=== PATIENT | female | born 1990 | race Two or more races ===

== ENCOUNTER 2024-12-31 10:16 | Observation (INO) | payer MEDICAID, SELFPAY ==
[2024-12-31] VITALS (10 sets, daily range): BP systolic 135–142; BP diastolic 82–88; PULSE 78–110; RESP 16–27; TEMP 36.9–37; O2SAT 89–97; BMI 58.4
--- NOTE | 2024-12-31 10:48 | EDRME_ITS ---
<Statement entered by Joseph Sawyer MD - 12/31/24 21:12> I didn't see the patient. This was sent to me in error. Rapid Medical Screening Exam RME Arrival date/time: 12/31/24 10:16 34-year-old female with no known medical history presents to the emergency room with a chief complaint of shortness of breath. Patient was sent over by her primary care provider for an O2 saturation of 88% on room air. The patient has been on antibiotics for pneumonia for a week and her symptoms have progressively gotten worse. I have greeted and performed a focused initial assessment of this patient. A comprehensive ED assessment and evaluation of the patient, analysis of all test results, and completion of the medical decision making process will be conducted by additional ED providers. Chief Complaint: Flu Like Symptoms Vital signs: Vital Signs Temperature 98.4 F 12/31/24 10:44 Pulse Rate 91 12/31/24 10:44 Respiratory Rate 16 12/31/24 10:44 Blood Pressure 135/88 H 12/31/24 10:44 Pulse Oximetry (%) 89 L 12/31/24 10:44 Oxygen Delivery Method Room Air 12/31/24 10:44 Vital signs reviewed by provider: Yes
--- NOTE | 2024-12-31 10:48 | XR_ITS ---
Examination: PA lateral chest 2 views Technique: Upright PA lateral chest 2 views Exam date and time: December 31, 2024 1058 hrs. Indications: Coughing fever beginning 2 weeks ago Findings: The film is overpenetrated There is early pneumonia left base obscuring detail left hemidiaphragm Right lung clear Impression: Early left base pneumonia
[2024-12-31] MEDS: DEXAMETHASONE SOD PHOS INJ 10 MG/ML VIAL PO (11:15)
[2024-12-31] MEDS: ALBUTEROL/IPRATROPIUM (Duoneb) RT SOL 3 ML NEBU 6 ML INH (11:23)
--- NOTE | 2024-12-31 11:25 | EDNOTE_ITS ---
ED SOB =RME/HPI General Chief Complaint: Flu Like Symptoms Stated Complaint: SENT BY PCP FOR LOW SP02 Time Seen by Provider: 12/31/24 11:19 Arrival date/time: 12/31/24 10:16 RME / HPI RME / HPI Narrative: 12/31/24 10:16 34-year-old female with no known medical history presents to the emergency room with a chief complaint of shortness of breath. Patient was sent over by her primary care provider for an O2 saturation of 88% on room air. The patient has been on antibiotics for pneumonia for a week and her symptoms have progressively gotten worse. I have greeted and performed a focused initial assessment of this patient. A comprehensive ED assessment and evaluation of the patient, analysis of all test results, and completion of the medical decision making process will be conducted by additional ED providers. DR. EVAN MORRIS ED EVALUATION 34 year old female presents to the ED for evaluation of shortness of breath and cough today. Reportedly 2 weeks ago had a mild cough and diagnosed with strep throat by PCP at [facility]. States she was started on Amoxicillin and Promethazine which she completed with no change. States 5 days ago the cough worsened and returned to her PCP who diagnosed her with pneumonia. Was started on an inhaler and a 5-day course of Z-pack which she completed today with no improvement. Accompanied by pain just below her left breast. Denies fevers in the last 24 hours. Related Data Home Medications ?Medication ?Instructions ?Recorded ?Confirmed ergocalciferol (vitamin D2) 1,250 1,250 mcg PO QDAY 08/14/21 mcg (50,000 unit) capsule ferrous sulfate 325 mg (65 mg 325 mg PO QDAY 08/14/21 08/14/21 iron) tablet,delayed release Allergies Allergy/AdvReac Type Severity Reaction Status Date / Time No Known Allergies Allergy Verified 08/14/21 17:44 Review of Systems Review of Systems Narrative Review of Systems: GEN: No fever, no chills, no weight loss EYES: No discharge, no visual changes, no pain HEENT: No ear pain, no congestion, no sore throat PULM: + shortness of breath, +cough CV: No chest pain, no dyspnea on exertion, no palpitations GI: No nausea, no vomiting, no diarrhea, no pain, no constipation : No frequency, no urgency and no dysuria MUSC/SKEL No joint pain, no back pain SKIN: No rash NEURO: No weakness, no headache Past Medical History Past Medical History GENITOURINARY: Positive Genitourinary Disorders (HX OF UTI 2 WEEKS AGO.) REPRODUCTIVE: Positive Previous Pregnancies OTHER HISTORY: Positive Hospitalization, Anesthesia Reactions (2007- passed out and had no pulse afater general anesthesia.) and Chicken Pox Family History FAMILY HISTORY: Positive Family Surgery (.) Surgical History SURGICAL: Positive Section Social History SMOKING STATUS: Never smoker SECOND HAND EXPOSURE: No SUBSTANCE USE: does not use ED Exam Narrative Physical exam: GENERAL APPEARANCE: Well hydrated, well nourished, in no acute distress. Obese. VITALS: All vitals were reviewed and the pulse ox is 89% on room air which is low. HEENT: Normocephalic, atramatic, EOMI, EACs are patent. There is no bulge or retraction. Throat without erythema or exudate. Moist oromucosa. No jaundice NECK: Supple, no JVD or bruits. CARDIOVASCULAR: Heart regular without S3-S4 or murmur. No rubs or gallops. LUNGS/CHEST: Rhonchi left base. No rales or wheezing. ABDOMEN: Soft, obese, nontender, with normal bowel sounds. No pulsatile masses. No rebound, rigidity, or guarding. No incarcerated hernia. EXTREMITIES: Normal inspection and palpation. No edema, clubbing, or cyanosis. Intact CSM SKIN: Warm and dry without rashes. Normal inspection. MUSCULOSKELETAL: Normal inspection. No gross deformity, full ROM all extremities NEURO: Alert and oriented x3. Cranial nerves II through XII grossly intact. There are no other motor or sensory deficits noted. PSYCHIATRIC: Normal mood and affect. No psychosis. Course Course Course Narrative: chest xray ordered to help determine etiology of shortness of breath. Quality Measures none Orders Category Date Time Status Patient Condition Routine Admission 12/31/24 17:[address] in Observation Status Routine Admission 12/31/24 17:33 Active Activity as Tolerated Routine Care 12/31/24 17:36 Ordered Bedside COVID-19 Antigen Test NOW Care 12/31/24 10:48 Active Bedside Influenza A&B Antigen Test NOW Care 12/31/24 10:48 Completed Continuous Pulse Oximetry NOW Care 12/31/24 17:33 Active Incentive Spirometry Treatment NOW Care 12/31/24 17:33 Active Notify provider NEEDED Care 12/31/24 17:33 Active Saline [Insert IV] NOW Care 12/31/24 11:35 Active Vital Signs, Non-Routine Q4H Care 12/31/24 17:45 Ordered Vital Signs, Non-Routine Q4H Care 12/31/24 21:45 Ordered Diet Regular Diet 12/31/24 Dinner Active XR chest 2V Stat Exams 12/31/24 10:48 Completed CBC AM DRAW Lab 01/01/25 05:00 Ordered CBC Stat Lab 12/31/24 11:46 Completed CMP [Comprehensive Metabolic Panel] Stat Lab 12/31/24 11:46 Completed Comprehensive Metabolic Panel AM DRAW Lab 01/01/25 05:00 Ordered Comprehensive Metabolic Panel AM DRAW Lab 01/02/25 05:00 Ordered Comprehensive Metabolic Panel AM DRAW Lab 01/03/25 05:00 Ordered Acetaminophen Tab [Tylenol Tab] Med 12/31/24 17:33 Active 650 mg PO Q6H PRN Albuterol/Ipratr Rt Sabiha [Duoneb Rt Sabiha] Med 12/31/24 19:00 Ordered 3 ml INH Q4HRRT Albuterol/Ipratr Rt Sabiha [Duoneb Rt Sabiha] Med 12/31/24 10:48 Discontinued 6 ml INH X1 ONE Azithromycin Po [Zithromax PO] Med 01/01/25 17:30 Once 250 mg PO X1 ONE Azithromycin Po [Zithromax PO] Med 12/31/24 17:28 Discontinued 500 mg PO X1 ONE Dexamethasone Inj [Decadron Inj] Med 12/31/24 10:48 Discontinued 10 mg PO X1 ONE Enoxaparin [Lovenox] Med 01/01/25 09:00 Ordered 40 mg SC QDAY Ibuprofen Tab [Motrin Tab] Med 12/31/24 17:33 Active 600 mg PO Q6H PRN Ondansetron Inj [Zofran Inj] Med 12/31/24 17:33 Ordered 4 mg IV Q6H PRN Senna [Senokot] Med 12/31/24 17:33 Ordered 2 tab PO BID PRN cefTRIAXone [Rocephin] 1,000 mg Med 01/01/25 14:00 Active Sodium Chloride 0.9% (P) [Ns 0.9% (P)] 50 ml IV QDAY@1400 cefTRIAXone [Rocephin] 1,000 mg Med 01/01/25 14:00 Discontinued Sodium Chloride 0.9% (P) [Ns 0.9% (P)] 50 ml IV QDAY@1400 cefTRIAXone [Rocephin] 1,000 mg Med 12/31/24 12:45 Discontinued Sodium Chloride 0.9% (P) [Ns 0.9% (P)] 50 ml IV X1 oxyCODONE/APAP 5/325 [Percocet 5/325] Med 12/31/24 17:33 Active 1 tab PO Q6H PRN Code Status Routine Oth 12/31/24 17:33 Ordered Oxygen Delivery DAILY RT 12/31/24 17:36 Active Vital Signs Vital signs: Vital Signs Temperature 98.4 F 12/31/24 10:44 Pulse Rate 91 12/31/24 10:44 Respiratory Rate 16 12/31/24 10:44 Blood Pressure 135/88 H 12/31/24 10:44 Pulse Oximetry (%) 89 L 12/31/24 10:44 Oxygen Delivery Method Room Air 12/31/24 10:44 Shortness of Breath / Dyspnea MDM Narrative MDM Narrative:: María Mendoza am scribing for and in the presence of Dr. Carl. The patient has failed amoxicillin and has failed Zithromax by mouth as an outpatient for pneumonia. She came in with O2 saturation of 89% room air. CBC unremarkable. CMP negative. COVID-19 and influenza are negative. We did not do a test because she reported that she has had no sex for the last 3 years Chest x-ray interpreted by me: Left lower lobe infiltrate. Heart normal. Mediastinum normal. Normal bones. In the emergency department the patient received albuterol in the form of DuoNeb, Decadron and IV antibiotic Rocephin. The latest O2 saturation in room air was 87% at 4:50 PM. 4:53 PM, I spoke to discussed with Dr. Jeremy Moreno, resident on-call for Dr. Givens, hospitalist on-call. She agreed to assess the patient for admission. Critical care time is approximately 35 minutes excluding any procedure. Patient data External records reviewed:: [facility] previous records (I reviewed ED visit on 08/10/2021) Clinical information provided by:: patient Social determinants that could affect healthcare access:: none Patient has the following chronic illnesses:: Previous pregnancies How is presenting disease/condition affected by chronic disease/condition?: uneffected by Evaluation data The following diagnostics were reviewed and interpreted by me:: lab results and radiology exam(s) Lab and/or radiology exams considered but not ordered:: None Interpretation Summary: Ordering Physician: Chris Garcia Date of Service: 12/31/24 Procedure(s): XR chest 2V Accession Number(s): [id number] cc: Chris Garcia; Butch Alfonso MD~ Examination: PA lateral chest 2 views Technique: Upright PA lateral chest 2 views Exam date and time: December 31, 2024 1058 hrs. Indications: Coughing fever beginning 2 weeks ago Findings: The film is overpenetrated There is early pneumonia left base obscuring detail left hemidiaphragm Right lung clear Impression: Early left base pneumonia Dictated By: Butch Alfonso MD Signed By: <Electronically signed by Butch Alfonso MD in OV> 12/31/24 1257 Medications / Prescriptions Medications or Prescriptions considered but not ordered:: None Medication administrations:: Medication Administration History Acetaminophen (Acetaminophen 325 Mg Tablet) 650 mg PO Q6H PRN PRN Reason: Fever >101.5 Stop: 01/30/25 17:32 Albuterol/Ipratropium (Albuterol/Ipratropium (Duoneb) Rt Sabiha 3 Ml Nebu) 3 ml INH Q4HRRT [facility] Stop: 01/30/25 18:59 Azithromycin (Azithromycin 250 Mg Tablet) 250 mg PO X1 ONE Stop: 01/01/25 17:31 Enoxaparin Sodium (Enoxaparin Sod Inj 40 Mg/0.4 Ml Syringe) 40 mg SC QDAY [facility] Stop: 01/15/25 08:59 Ceftriaxone Sodium 1,000 mg/ (Sodium Chloride) 50 mls @ 100 mls/hr IV QDAY@1400 [facility] Stop: 01/08/25 13:59 Ibuprofen (Ibuprofen Tab 600 Mg Tablet) 600 mg PO Q6H PRN PRN Reason: PAIN SCALE 1-3 (mild Stop: 01/30/25 17:32 Ondansetron HCl (Ondansetron Inj 2 Mg/Ml Inj 2 Ml) 4 mg IV Q6H PRN; Protocol PRN Reason: NAUSEA OR VOMITING Stop: 01/30/25 17:32 Oxycodone/Acetaminophen (Oxycodone/Apap 5/325 Tablet) 1 tab PO Q6H PRN PRN Reason: PAIN SCALE 4-6 (Moderate Stop: 01/05/25 17:32 Sennosides (Senna Tablet) 2 tab PO BID PRN; Protocol PRN Reason: CONSTIPATION Stop: 01/30/25 17:32 Discontinued Medications Albuterol/Ipratropium (Albuterol/Ipratropium (Duoneb) Rt Sabiha 3 Ml Nebu) 6 ml INH X1 ONE Stop: 12/31/24 10:49 Last Admin: 12/31/24 11:23 Dose: 6 ml Documented By: LO Azithromycin (Azithromycin 250 Mg Tablet) 500 mg PO X1 ONE Stop: 12/31/24 17:29 Dexamethasone Sodium Phosphate (Dexamethasone Sod Phos Inj 10 Mg/Ml Vial) 10 mg PO X1 ONE Stop: 12/31/24 10:49 Last Admin: 12/31/24 11:15 Dose: 10 mg Documented By: DB Ceftriaxone Sodium 1,000 mg/ (Sodium Chloride) 50 mls @ 100 mls/hr IV X1 ONE Stop: 12/31/24 13:14 Last Infusion: 12/31/24 13:10 Dose: Infused Documented By: Admin: 12/31/24 12:41 Dose: 100 mls/hr Documented By: ER Ceftriaxone Sodium 1,000 mg/ (Sodium Chloride) 50 mls @ 100 mls/hr IV QDAY@1400 [facility] Stop: 01/08/25 13:59 See above Consultations Consultation(s) initiated? (list below): Yes Consultation #1 (Physician, Specialty, Details): I spoke with hospitalist team regarding admission. Discussed patients PMHx, HPI, ED course, exam findings, labs, and radiology results as noted above. Diagnosis Shortness of Breath Differential Diagnosis: acute exacerbation of chronic obstructive airways disease, congestive heart failure, community acquired pneumonia and asthma with exacerbation Most likely diagnosis given after review of the tests above:: Pneumonia Failure of outpatient antibiotic Hypoxia Admission Indicated Admission indicated?: not indicated Admission Request Was there a request for admission?: Yes Admission Attestation Admission request attestation: Discussed case with [] from Hospitalist service regarding admission. Discussed patients ED course, exam findings, labs, and radiology results. The Hospitalist [agrees,declines] to accept the patient for admission. Disposition Plan Disposition Plan: Admit Discharge Plan Plan Patient Disposition: Admit Acute Care w/in Hospital Disposition Comment: Stable for admit Prescriptions/Referrals Prescriptions/Med Rec: No Action ergocalciferol (vitamin D2) 1,250 mcg (50,000 unit) capsule 1,250 mcg PO QDAY Patient Comments: TAKE 1 CAPSULE BY MOUTH ONE TIME PER WEEK ferrous sulfate 325 mg (65 mg iron) tablet,delayed release (DR/EC) 325 mg PO QDAY Patient Comments: TAKE 1 TABLET BY MOUTH EVERY DAY Referrals: Zechariah Landry MD [Primary Care Provider] - In 1 week Problem List Clinical Impression: Pneumonia, Hypoxia Patient/Caregiver Discharge Instructions Print Language: Kyrgyz Stand Alone Forms: [facility] Award Info., Patient Portal Info Letter
[2024-12-31 11:54] LABS: Basophils # (Auto) 0.1 Thou/mm3 (0.0-0.2); Basophils % (Auto) 1 % (0-2.5); Eosinophils # (Auto) 0.3 Thou/mm3 (0.0-0.5); Eosinophils % (Auto) 3 % (0-10); Hematocrit 36.7 % (36.0-46.0); Hemoglobin 11.9 g/dL (12.0-16.0); Immature Granulocytes % (Auto) 1 % (0-0); Immature Granulocytes Auto 0.07 Thou/mm3 (0.00-0.00); Lymphocytes # (Auto) 3.1 Thou/mm3 (1.0-4.8); Lymphocytes % (Auto) 29 % (10-50); Mean Corpuscular HGB Conc 32.4 g/dl (31.0-37.0); Mean Corpuscular Volume 83 fL (80-100); Monocytes # (Auto) 0.6 Thou/mm3 (0.0-0.8); Monocytes % (Auto) 5 % (0-12); Neutrophils # (Auto) 6.8 Thou/mm3 (1.8-7.7); Neutrophils % (Auto) 62 % (37-80); Nucleated Red Blood Cell % 0 /100 WBC (0); Platelet Count 372 Thou/mm3 (140-440); RDW Standard Deviation 44.2 fL (36.4-46.3); Red Blood Count 4.41 Miln/mm3 (4.00-5.20); White Blood Count 10.9 Thou/mm3 (3.6-11.0)
[2024-12-31 12:23] LABS: Alanine Aminotransferase 49 U/L (10-49); Albumin, Serum 4.6 gm/dL (3.5-5.0); Albumin/Globulin Ratio 1.4 (1.2-2.2); Alkaline Phosphatase 90 U/L (46-116); Anion Gap 10 (7-16); Aspartate Amino Transferase 53 U/L (0-34); BUN/Creatinine Ratio 15 Ratio (12-20); Bilirubin,Total 0.7 mg/dL (0.3-1.2); Blood Urea Nitrogen 9 mg/dL (9-23); Calcium 9.7 mg/dL (8.3-10.6); Calcium (Corrected) 9.7 mg/dL (8.5-10.1); Carbon Dioxide 27.7 mMol/L (20.0-31.0); Chloride 101 mMol/L (98-107); Creatinine (Component) 0.6 mg/dL (0.6-1.3); Estimated Creatinine Clearance 188.7 mL/min (>60); Globulin 3.3 gm/dL (2.3-3.5); Glucose 116 mg/dL (74-106); Osmolality,Calculated 277 (275-295); Sodium 139 mMol/L (136-145); Total Protein 7.9 gm/dL (5.7-8.2); eGFR > 60 See Note
[2024-12-31] MEDS: cefTRIAXone 1,000 MG in SODIUM CHLORIDE 0.9% (P) 50 ML 100 MG IV (12:41)
--- NOTE | 2024-12-31 17:40 | ESHP_ITS ---
<Statement entered by Indira Zambrano MD - 12/31/24 18:22> I discussed with and supervised my co-resident involved in the care of this patient. I agree with the assessment and plan as documented above. Patient is a 34year old female with no significant PMH who presents to the ER for worsening shortness of breath. Patient had strep throat and completed an outpatient course of azithromycin and amoxicillin, but continues to feel short of breath. In the ER, patient was saturating at 89% on room air. CXR showed early left base pneumonia. She was given steroids and breathing treatment in the ER. While talking she is not short of breath and can complete full sentences but desaturates to the 90s. Patient to be admitted overnight for IV antibiotics and oxygen if needed. Indira Zambrano MD PGY-3 Documentation for date of: 12/31/24 HPI History of Present Illness Chief complaint: Shortness of breath History of present illness: Patient is a 34-year-old female with no significant past medical history presenting with a complaint of shortness of breath over the last 2 weeks. Symptoms started on 12/20 with fevers, chills, sore throat. Patient went to primary care at that time and was diagnosed with strep throat and prescribed a course of amoxicillin. She completed the entire course however did not feel better and began to develop shortness of breath. She went back to her primary care was prescribed azithromycin and finished the last day of antibiotics today. However noted that she still continued to feel bad and her shortness of breath had not improved so she went to the ED. In the ED patient was found to be hypoxic with an oxygen saturation of 88% on room air. CBC with a hemoglobin of 11.9. CMP with AST of 53. Chest x-ray shows early left base pneumonia. Patient was given a dose of ceftriaxone, DuoNeb and 10 mg of dexamethasone. Medical history: Obesity Allergies: None Medications: Ibuprofen Surgical history: 2 C-sections Social: Denies alcohol or drug use CODE STATUS: Full code Patient was evaluated and seen with my attending Dr. Givens, René Smart DO, PGY1 Review of Systems Constitutional Constitutional: Reports as per HPI Exam Vital Signs Temp Pulse Resp BP Pulse Ox O2 Del Method 98.4 F 78 20 135/88 H 97 Room Air 12/31/24 10:44 12/31/24 11:24 12/31/24 11:24 12/31/24 10:44 12/31/24 11:24 12/31/24 10:44 Narrative Exam Constitutional: Anxious Head: Normocephalic Eyes: no conjunctival injection , symmetrical lids. ENMT: Moist Mucous Membranes CVS: Regular rate and rhythm, S1 and S2 present RESP: Clear to auscultation throughout, no increased work of breathing, good chest rise and fall, 89% on room air MSK: Full range of motion, No trauma or deformities or masses. Skin: Warm to touch, Dry. No rashes or lesions. Neuro: Alert and oriented Psych: Cooperative Results: Labs 01/01/25 05:25 01/01/25 05:25 Labs: Short CBC 12/31/24 Range/Units 11:46 WBC 10.9 (3.6-11.0) Thou/mm3 Hgb 11.9 L (12.0-16.0) g/dL Hct 36.7 (36.0-46.0) % Plt Count 372 (140-440) Thou/mm3 BMP 12/31/24 11:46 Sodium 139 Potassium 4.0 Chloride 101 Carbon Dioxide 27.7 BUN 9 Creatinine 0.6 Glucose 116 H Calcium 9.7 Liver Function 12/31/24 Range/Units 11:46 Total Bilirubin 0.7 (0.3-1.2) mg/dL AST 53 H (0-34) U/L ALT 49 (10-49) U/L Alkaline Phosphatase 90 (46-116) U/L Albumin 4.6 (3.5-5.0) gm/dL Quality Measures Quality Measures none Medications Home Medications and Allergies Home Medications ?Medication ?Instructions ?Recorded ?Confirmed ?Type ergocalciferol (vitamin D2) 1,250 1,250 mcg PO QDAY 08/14/21 History mcg (50,000 unit) capsule ferrous sulfate 325 mg (65 mg 325 mg PO QDAY 08/14/21 08/14/21 History iron) tablet,delayed release Allergies Allergy/AdvReac Type Severity Reaction Status Date / Time No Known Allergies Allergy Verified 08/14/21 17:44 Visit Medications Acetaminophen (Acetaminophen 325 Mg Tablet) 650 mg PO Q6H PRN PRN Reason: Fever >101.5 Stop: 01/30/25 17:32 Albuterol/Ipratropium (Albuterol/Ipratropium (Duoneb) Rt Sabiha 3 Ml Nebu) 3 ml INH Q4HRRT [facility] Stop: 01/30/25 18:59 Azithromycin (Azithromycin 250 Mg Tablet) 250 mg PO X1 ONE Stop: 01/01/25 17:31 Enoxaparin Sodium (Enoxaparin Sod Inj 40 Mg/0.4 Ml Syringe) 40 mg SC QDAY [facility] Stop: 01/15/25 08:59 Ceftriaxone Sodium 1,000 mg/ (Sodium Chloride) 50 mls @ 100 mls/hr IV QDAY@1400 [facility] Stop: 01/08/25 13:59 Ibuprofen (Ibuprofen Tab 600 Mg Tablet) 600 mg PO Q6H PRN PRN Reason: PAIN SCALE 1-3 (mild Stop: 01/30/25 17:32 Ondansetron HCl (Ondansetron Inj 2 Mg/Ml Inj 2 Ml) 4 mg IV Q6H PRN; Protocol PRN Reason: NAUSEA OR VOMITING Stop: 01/30/25 17:32 Oxycodone/Acetaminophen (Oxycodone/Apap 5/325 Tablet) 1 tab PO Q6H PRN PRN Reason: PAIN SCALE 4-6 (Moderate Stop: 01/05/25 17:32 Sennosides (Senna Tablet) 2 tab PO BID PRN; Protocol PRN Reason: CONSTIPATION Stop: 01/30/25 17:32 Discontinued Medications Albuterol/Ipratropium (Albuterol/Ipratropium (Duoneb) Rt Sabiha 3 Ml Nebu) 6 ml INH X1 ONE Stop: 12/31/24 10:49 Last Admin: 12/31/24 11:23 Dose: 6 ml Azithromycin (Azithromycin 250 Mg Tablet) 500 mg PO X1 ONE Stop: 12/31/24 17:29 Dexamethasone Sodium Phosphate (Dexamethasone Sod Phos Inj 10 Mg/Ml Vial) 10 mg PO X1 ONE Stop: 12/31/24 10:49 Last Admin: 12/31/24 11:15 Dose: 10 mg Ceftriaxone Sodium 1,000 mg/ (Sodium Chloride) 50 mls @ 100 mls/hr IV X1 ONE Stop: 12/31/24 13:14 Last Infusion: 12/31/24 13:10 Dose: Infused Ceftriaxone Sodium 1,000 mg/ (Sodium Chloride) 50 mls @ 100 mls/hr IV QDAY@1400 [facility] Stop: 01/08/25 13:59 Assessment & Plan Plan Patient is a 34-year-old female with no significant past medical history presenting with a complaint of shortness of breath over the last 2 weeks. Admitted for acute hypoxic respiratory failure secondary to lobar pneumonia. #Acute hypoxic respiratory failure secondary to left base pneumonia #Shortness of breath #Community-acquired pneumonia In the ED patient was found to be hypoxic with an oxygen saturation of 88% on room air. Chest x-ray shows early left base pneumonia. Patient was given a dose of ceftriaxone, DuoNeb and 10 mg of dexamethasone. ?Ceftriaxone 1 mg daily ?Loading dose azithromycin 500 mg, followed by azithromycin 250 daily ?DuoNebs every 4 hours ?Incentive spirometer ?O2 as needed #Anemia Hemoglobin of 11.9 ?Anemia studies pending #Obesity Disposition: Likely home tomorrow, possibly with oxygen Diet: Regular DVT prophylaxis: Lovenox GI prophylaxis: Not indicated CODE STATUS: Full code Patient was evaluated and seen with my attending René Varma DO, PGY1 Attending Provider Attestation/Addendum I have discussed and was present for the essential components of the history, physical examination, diagnosis, and treatment plan with the resident. I agree with the patient's care as documented by the resident and amended herein by me. Jcarlos Givens DO. Although this document has been carefully reviewed, there may still be some phonetic and other typographical errors. These errors are purely grammatical due to imperfections in the software program and should not be construed in any way to compromise the substance of the patient's medical care during this visit.
[2024-12-31] MEDS: AZITHROMYCIN 250 MG TABLET 500 MG PO (17:59)
[2024-12-31] MEDS: ALBUTEROL/IPRATROPIUM (Duoneb) RT SOL 3 ML NEBU INH ×2 (18:13→22:38)
[2024-12-31 18:27] LABS: Total Iron Binding Capacity 380 mcg/dL (250-425)
[2024-12-31 18:41] LABS: Iron 52 mcg/dL (50-170); Percent Iron Saturation 13 % (20-55); Unsaturated Iron Binding 328 (225-295)
[2024-12-31 20:20] LABS: Glucose Estimated Average 137 mg/dL (80-131); Hemoglobin A1C 6.4 % Hgb (4.8-6.0)
[2024-12-31 20:21] LABS: Cholesterol 153 mg/dL (132-200); HDL Cholesterol 38 mg/dL (40-60); LDL Cholesterol,Calculated 88 mg/dL (0-130); Triglycerides 134 mg/dL (30-150)
[2025-01-01] VITALS (15 sets, daily range): BP systolic 98–153; BP diastolic 60–90; PULSE 71–106; RESP 14–25; TEMP 36.1–36.3; O2SAT 92–98; BMI 58.8
[2025-01-01] MEDS: ALBUTEROL/IPRATROPIUM (Duoneb) RT SOL 3 ML NEBU INH ×6 (02:34→22:45)
[2025-01-01 05:57] LABS: Basophils % (Auto) 0 % (0-2.5); Eosinophils % (Auto) 0 % (0-10); Hematocrit 31.5 % (36.0-46.0); Immature Granulocytes % (Auto) 1 % (0-0); Immature Granulocytes Auto 0.12 Thou/mm3 (0.00-0.00); Lymphocytes % (Auto) 15 % (10-50); Mean Corpuscular HGB Conc 34.9 g/dl (31.0-37.0); Mean Corpuscular Hemoglobin 30.6 pg (25.0-35.0); Mean Corpuscular Volume 88 fL (80-100); Monocytes # (Auto) 0.7 Thou/mm3 (0.0-0.8); Monocytes % (Auto) 5 % (0-12); Neutrophils # (Auto) 10.7 Thou/mm3 (1.8-7.7); Neutrophils % (Auto) 79 % (37-80); Nucleated Red Blood Cell % 0 /100 WBC (0); Platelet Count 365 Thou/mm3 (140-440); RDW Standard Deviation 45.8 fL (36.4-46.3); Red Blood Count 3.59 Miln/mm3 (4.00-5.20); White Blood Count 13.6 Thou/mm3 (3.6-11.0)
[2025-01-01 06:24] LABS: Alanine Aminotransferase 49 U/L (10-49); Albumin, Serum 4.6 gm/dL (3.5-5.0); Albumin/Globulin Ratio 1.4 (1.2-2.2); Alkaline Phosphatase 84 U/L (46-116); Anion Gap 7 (7-16); Aspartate Amino Transferase 40 U/L (0-34); BUN/Creatinine Ratio 20 Ratio (12-20); Bilirubin,Total 0.7 mg/dL (0.3-1.2); Blood Urea Nitrogen 10 mg/dL (9-23); Calcium 9.9 mg/dL (8.3-10.6); Calcium (Corrected) 9.9 mg/dL (8.5-10.1); Carbon Dioxide 25.6 mMol/L (20.0-31.0); Chloride 107 mMol/L (98-107); Creatinine (Component) 0.5 mg/dL (0.6-1.3); Estimated Creatinine Clearance 227.3 mL/min (>60); Globulin 3.3 gm/dL (2.3-3.5); Glucose 128 mg/dL (74-106); Osmolality,Calculated 280 (275-295); Potassium 4.4 mMol/L (3.4-5.1); Sodium 140 mMol/L (136-145); Total Protein 7.9 gm/dL (5.7-8.2); eGFR > 60 See Note
[2025-01-01] MEDS: INSULIN LISPRO (AdmeLOG) 1 UNIT/0.01 ML UNIT SC ×3 (08:29→17:04)
[2025-01-01] MEDS: ENOXAPARIN SOD INJ 40 MG/0.4 ML SYRINGE SC (08:30)
--- NOTE | 2025-01-01 14:02 | ESPR_ITS ---
<Statement entered by Indira Zambrano MD - 01/01/25 14:12> Patient seen at bedside. While talking, patient desaturates to the 92s on 6L O2. Endorses orthopnea, bendopnea x 2 weeks. Labs significant for A1c at 6.7. Explained to patient she is pre-diabetic. Will get diabetic counselling and continue to wean O2 as needed. Suspect component of OHS and sleep apnea, so will try CPAP at night. Patient has STOPBANG score of 5, and would benefit from outpatient sleep study for undiagnosed sleep apnea. Indira Zambrano MD PGY-3 Documentation for date of: 01/01/25 Subjective Subjective Interval history: Patient was seen at bedside this morning. No overnight events. Patient's A1c was 6.4% this morning. Patient was saturating in the 92 to 94% on 6 L of O2 via nasal cannula and she stated that she felt short of breath when laying flat. Told patient about her prediabetes at this time and about the need to do lifestyle changes in order to avoid reaching diabetes. This morning patient had a meal which was not from the hospital cafeteria and then noncompliant with carb consistent diet. Will continue with current management for pneumonia for now and if patient is able to be weaned off oxygen will expect possible discharge in the next 24 to 48 hours. Exam Vital Signs Temp Pulse Resp BP Pulse Ox O2 Del Method O2 Flow Rate 97.2 F 91 20 153/74 H 95 Nasal Cannula 6 01/01/25 12:00 01/01/25 12:00 01/01/25 12:00 01/01/25 12:00 01/01/25 12:00 01/01/25 12:01/01/25 12:00 Narrative Exam General: A/O x3, no acute distress, well-nourished, well-developed Eyes: PERRL, EOMI. Anicteric, vision grossly intact. Ears: No ear pain, no ear discharge, Hearing grossly intact. Nose: No nasal discharge. Mouth/Throat: Moist mucous membranes, no redness, no lesions. Neck: Neck supple, non-tender, no cervical lymphadenopathy. Lungs: Decreased breath sounds, No accessory muscle use. Cardio: Normal S1/S2, regular rhythm, no murmurs, no JVD or carotid bruits. Abdomen: Soft, non-tender, no palpable masses, peristalsis present, no guarding or rebound. Extremities: Symmetrical, no significant deformities, no peripheral edema , non-tender, peripheral pulses presents. Skin: No rashes, no lesions, warm to touch. Neuro: No focal neurological deficits. motor and sensory intact. Psych: Cooperative, appropriate mood and effect. Objective Labs 01/01/25 05:25 01/01/25 05:25 Labs: Laboratory Results - last 24 hr 12/31/24 01/01/25 11:46 05:25 WBC 13.6 H RBC 3.59 L Hgb 11.0 L Hct 31.5 L MCV 88 MCH 30.6 MCHC 34.9 RDW Std Deviation 45.8 Plt Count 365 Neut % (Auto) 79 Lymph % (Auto) 15 Bollinger % (Auto) 5 Eos % (Auto) 0 Baso % (Auto) 0 Neut # (Auto) 10.7 H Lymph # (Auto) 2.0 Bollinger # (Auto) 0.7 Eos # (Auto) 0.0 Baso # (Auto) 0.0 Immature Gran # (Auto) 0.12 H Absolute Nucleated RBC 0.00 Immature Gran % 1 H Nucleated RBC % 0 Sodium 140 Potassium 4.4 Chloride 107 Carbon Dioxide 25.6 Anion Gap 7 BUN 10 Creatinine 0.5 L Estim Creat Clear Calc 227.3 eGFR > 60 BUN/Creatinine Ratio [address] Glu mg/dL 137 H Hemoglobin A1c 6.4 H Calculated Osmolality 280 Calcium 9.9 Corrected Calcium 9.9 Iron 52 TIBC 380 Iron Saturation 13 L Unsat Iron Binding 328 H Total Bilirubin 0.7 AST 40 H ALT 49 Alkaline Phosphatase 84 Total Protein 7.9 Albumin 4.6 Globulin 3.3 Albumin/Globulin Ratio 1.4 Triglycerides 134 Cholesterol 153 LDL Cholesterol, Calc 88 HDL Cholesterol 38 L Cholesterol/HDL Ratio 4.0 Quality Measures Quality Measures none Assessment & Plan Assessment Current Active Medications: Generic Name Dose Route Start Last Admin Trade Name Freq PRN Reason Stop Dose Admin Acetaminophen 650 mg 12/31/24 17:33 Acetaminophen 325 Mg Tablet PO 01/30/25 17:32 Q6H PRN Fever >101.5 Albuterol/Ipratropium 3 ml 12/31/24 19:00 01/01/25 10:51 Albuterol/Ipratropium (Duoneb) Rt Sabiha 3 Ml Nebu INH 01/30/25 18:59 3 ml Q4HRRT ADDISON Administration Azithromycin 250 mg 01/01/25 17:30 Azithromycin 250 Mg Tablet PO 01/01/25 17:31 X1 ONE Azithromycin 250 mg 01/01/25 14:05 Azithromycin 250 Mg Tablet PO 01/08/25 14:04 QDAY ADDISON Dextrose 25 ml 01/01/25 07:55 Dextrose 50%-Water Inj 50 Ml Syringe IV 01/31/25 07:54 Q15MIN PRN BG 50-70 responsive npo pt Dextrose 50 ml 01/01/25 07:55 Dextrose 50%-Water Inj 50 Ml Syringe IV 01/31/25 07:54 Q15MIN PRN BG <50 OR BG <70 & pt unresponsive Enoxaparin Sodium 40 mg 01/01/25 09:00 01/01/25 08:30 Enoxaparin Sod Inj 40 Mg/0.4 Ml Syringe SC 01/15/25 08:59 40 mg QDAY ADDISON Administration Glucagon 1 mg 01/01/25 07:55 Glucagon Inj 1 Mg Vial IM Q15MIN PRN BG <70, and no IV access Ceftriaxone Sodium 1,000 mg/ 50 mls @ 100 mls/hr 01/01/25 14:00 Sodium Chloride IV 01/08/25 13:59 QDAY@1400 ADDISON Ibuprofen 600 mg 12/31/24 17:33 Ibuprofen Tab 600 Mg Tablet PO 01/30/25 17:32 Q6H PRN PAIN SCALE 1-3 (mild Insulin Human Lispro 0 unit 01/01/25 07:55 01/01/25 11:41 Insulin Lispro (Admelog) 1 Unit/0.01 Ml Unit SC 01/31/25 07:54 3 unit AC ADDISON Administration Protocol Ondansetron HCl 4 mg 12/31/24 17:33 Ondansetron Inj 2 Mg/Ml Inj 2 Ml IV 01/30/25 17:32 Q6H PRN NAUSEA OR VOMITING Protocol Oxycodone/Acetaminophen 1 tab 12/31/24 17:33 Oxycodone/Apap 5/325 Tablet PO 01/05/25 17:32 Q6H PRN PAIN SCALE 4-6 (Moderate Sennosides 2 tab 12/31/24 17:33 Senna Tablet PO 01/30/25 17:32 BID PRN CONSTIPATION Protocol Plan 34-year-old female with no significant past medical history presenting with a complaint of shortness of breath over the last 2 weeks. Admitted for acute hypoxic respiratory failure secondary to lobar pneumonia. #Acute hypoxic respiratory failure secondary to left base pneumonia #Community-acquired pneumonia In the ED patient was found to be hypoxic with an oxygen saturation of 88% on room air. Chest x-ray shows early left base pneumonia. Patient was given a dose of ceftriaxone, DuoNeb and 10 mg of dexamethasone in ED. Plan: ?Ceftriaxone 1 mg daily and Azithromycin ?DuoNebs every 4 hours ?Incentive spirometer ?O2 as needed #Prediabetes #Obesity ?A1c 6.4% on 12/2024 Plan: ? Counseled the patient on lifestyle changes ? ISS ? Accu-Cheks and hypoglycemia protocol -Referred to registered dietitian ?Will continue monitor #Normocytic normochromic Anemia ?Hemoglobin of 11.9 ?Hemoglobin today 11 Plan: ? Will transfuse hemoglobin less than 7 ? Continue monitor Disposition: Patient seen in med surg pending O2 requirements to improve, possible DC in next 24-48hrs Diet: carb consistent low GI prophylaxis: not indicated DVT prophylaxis: lovenox Code: Full Case disclosed with Attending Dr. Givens and My senior Dr. Zambrano PGY3. Rick Daley PGY1 Attending Provider Attestation/Addendum I have discussed and was present for the essential components of the history, physical examination, diagnosis, and treatment plan with the resident. I agree with the patient's care as documented by the resident and amended herein by me. Jcarlos Givens, DO. Patient seen and evaluated this AM. Vital signs stable, patient afebrile overnight, no acute events recorded. Presently on 6 L via NC, SpO2 96%. WBC downtrending to 13.6 today, hemoglobin stable at 11. Will continue ceftriaxone azithromycin at this time. We did order an A1c on the patient as well as a lipid panel which is largely unremarkable however A1c was 6.4, we did order diabetic education as the patient is on the verge of overt diabetes which was explained to the patient. I also explained to the patient that she needs to consider an outpatient sleep study considering she does endorse snoring heavily at night, may require CPAP at home which we will order here. Likely DC in 1 to 2 days pending improvement. Although this document has been carefully reviewed, there may still be some phonetic and other typographical errors. These errors are purely grammatical due to imperfections in the software program and should not be construed in any way to compromise the substance of the patient's medical care during this visit.
[2025-01-01] MEDS: cefTRIAXone 1,000 MG in SODIUM CHLORIDE 0.9% (P) 50 ML 100 MG IV (14:28)
[2025-01-01] MEDS: AZITHROMYCIN 250 MG TABLET PO ×2 (14:29→16:56)
--- NOTE | 2025-01-01 16:21 | PC.SS ---
Rounding: PNA workup up on 6L o2
[2025-01-02] VITALS (9 sets, daily range): BP systolic 110–128; BP diastolic 57–84; PULSE 74–90; RESP 18–21; TEMP 36.1–36.4; O2SAT 92–99; BMI 58.5
[2025-01-02] MEDS: ALBUTEROL/IPRATROPIUM (Duoneb) RT SOL 3 ML NEBU INH ×4 (02:00→14:48)
[2025-01-02 05:11] LABS: Basophils # (Auto) 0.1 Thou/mm3 (0.0-0.2); Basophils % (Auto) 1 % (0-2.5); Eosinophils # (Auto) 0.3 Thou/mm3 (0.0-0.5); Eosinophils % (Auto) 2 % (0-10); Hematocrit 34.9 % (36.0-46.0); Hemoglobin 11.1 g/dL (12.0-16.0); Immature Granulocytes % (Auto) 1 % (0-0); Immature Granulocytes Auto 0.07 Thou/mm3 (0.00-0.00); Lymphocytes # (Auto) 4.3 Thou/mm3 (1.0-4.8); Lymphocytes % (Auto) 36 % (10-50); Mean Corpuscular HGB Conc 31.8 g/dl (31.0-37.0); Mean Corpuscular Hemoglobin 26.9 pg (25.0-35.0); Mean Corpuscular Volume 85 fL (80-100); Monocytes # (Auto) 0.6 Thou/mm3 (0.0-0.8); Monocytes % (Auto) 5 % (0-12); Neutrophils # (Auto) 6.7 Thou/mm3 (1.8-7.7); Neutrophils % (Auto) 56 % (37-80); Nucleated Red Blood Cell % 0 /100 WBC (0); Platelet Count 331 Thou/mm3 (140-440); RDW Standard Deviation 47.1 fL (36.4-46.3); Red Blood Count 4.12 Miln/mm3 (4.00-5.20)
[2025-01-02 05:53] LABS: Alanine Aminotransferase 50 U/L (10-49); Albumin, Serum 4.4 gm/dL (3.5-5.0); Albumin/Globulin Ratio 1.5 (1.2-2.2); Alkaline Phosphatase 78 U/L (46-116); Anion Gap 10 (7-16); Aspartate Amino Transferase 50 U/L (0-34); BUN/Creatinine Ratio 18 Ratio (12-20); Bilirubin,Total 0.6 mg/dL (0.3-1.2); Blood Urea Nitrogen 11 mg/dL (9-23); Calcium 9.6 mg/dL (8.3-10.6); Calcium (Corrected) 9.6 mg/dL (8.5-10.1); Carbon Dioxide 27.2 mMol/L (20.0-31.0); Chloride 101 mMol/L (98-107); Creatinine (Component) 0.6 mg/dL (0.6-1.3); Estimated Creatinine Clearance 189.4 mL/min (>60); Globulin 2.9 gm/dL (2.3-3.5); Glucose 102 mg/dL (74-106); Osmolality,Calculated 275 (275-295); Potassium 4.2 mMol/L (3.4-5.1); Sodium 138 mMol/L (136-145); Total Protein 7.3 gm/dL (5.7-8.2); eGFR > 60 See Note
[2025-01-02] MEDS: ENOXAPARIN SOD INJ 40 MG/0.4 ML SYRINGE SC (08:16)
[2025-01-02] MEDS: AZITHROMYCIN 250 MG TABLET PO (08:16)
--- NOTE | 2025-01-02 08:28 | PC.SS ---
Patient Odalis Bowen is a 34 Year old female admitted for PNA. SS met with patient at bedside in order to complete all ADL's independently. Patient reports she does not utilize any source of DME to assist with ambulation. Patient lives at home with her sister, Sylvia Malcolm who she reports is her surrogate decision maker [phone]. Patients choice of pharmacy is [facility]. PCP is Zechariah Landry. At time of discharge patient reports she would like to return back home. Family will provide transportation. Discharge plan: Home Next of Kin: Sister, Sylvia Malcolm [phone]
--- NOTE | 2025-01-02 11:19 | ESDS_ITS ---
Planned Discharge Date 01/02/25 DS: Providers Provider Date of admission: 12/31/24 17:33 Primary care physician: Zechariah Landry MD Admitting Provider: Aric Givens DO Attending Provider on Admission: Aric Givens DO Consults: 12/31/24 21:08 [facility] Referral - Knowledge Deficit Routine Comment: Positive screening for knowledge deficit needs. 01/01/25 14:00 Referral Registered Dietitian Routine Comment: Diabetic education Attending Provider on DC: Nnamdi Hayden MD Discharging Provider: Nnamdi Hayden MD DS: Diagnosis Problem List Completed Was Problem List Reviewed/Reconciled?: Yes Hospital Course Hospital Course Hospital course: 34-year-old female with no significant past medical history was admitted to the hospital on 12/31/2024 for acute hypoxic respiratory failure secondary to community-acquired pneumonia. In the ED patient came in with complaints of increased shortness of breath for the past 2 weeks and she also stated that she was recently treated for a sore throat strep positive. She stated that she got amoxicillin initially and then she was prescribed azithromycin, which both did not improve her symptoms of shortness of breath. Initially she was mildly hypertensive, hypoxic, and afebrile. Initial labs were relevant for initial labs were relevant low hemoglobin (11.9) and A1c of 6.4%. Initial imaging included a chest x-ray that shows some pneumonia of the left base. Throughout the hospital stay patient had increased O2 requirements and was placed on 6 L via nasal cannula, but on the day of discharge patient was saturating well on 2 L of O2. Patient did have a walking test to assess for need of oxygen and she desaturated while walking therefore will send patient with home O2. At the time of discharge patient was stable enough to be discharged home. Discharge plan: Please follow-up with primary care physician in 1 week after discharge Please maintain a low carbohydrate diet and increase your daily activities as you were found to be prediabetic. Please talk to your primary care physician about possibly starting metformin due to your prediabetes. Speak with your primary care physician to be referred to outpatient sleep study as he may have some underlying obstructive sleep apnea. You have been started on home oxygen due to hypoxia. Continue taking azithromycin and Augmentin for 3 more days. Please come back to the ER if symptoms persist or worsen. Problem list: #Acute hypoxic respiratory failure secondary to left base pneumonia #Community-acquired pneumonia #Prediabetes #Obesity #Normocytic normochromic Anemia Case disclosed with Attending Dr. Hayden and My senior Dr. Zambrano PGY3. Rick Daley PGY1 Status at Discharge Overall status at discharge: patient is progressing back to baseline Time Spent with Patient Time attestation: Total time spent providing and/or coordinating discharge services:>35 min Exam Vital Signs Temp Pulse Resp BP Pulse Ox O2 Del Method O2 Flow Rate 97.0 F 83 19 110/57 L 97 Nasal Cannula 2 01/02/25 08:00 01/02/25 10:43 01/02/25 10:43 01/02/25 08:00 01/02/25 10:43 01/02/25 08:00 01/02/25 10:43 Narrative Exam General: A/O x3, no acute distress, well-nourished, well-developed Eyes: PERRL, EOMI. Anicteric, vision grossly intact. Ears: No ear pain, no ear discharge, Hearing grossly intact. Nose: No nasal discharge. Mouth/Throat: Moist mucous membranes, no redness, no lesions. Neck: Neck supple, non-tender, no cervical lymphadenopathy. Lungs: Clear SHWETHA, No accessory muscle use. Cardio: Normal S1/S2, regular rhythm, no murmurs, no JVD or carotid bruits. Abdomen: Soft, non-tender, no palpable masses, peristalsis present, no guarding or rebound. Extremities: Symmetrical, no significant deformities, no peripheral edema , non-tender, peripheral pulses presents. Skin: No rashes, no lesions, warm to touch. Neuro: No focal neurological deficits. motor and sensory intact. Psych: Cooperative, appropriate mood and effect. Discharge Plan Plan Patient Disposition: HOME (Self Care) Disposition Comment: Stable for admit Care Plan Goals: Please follow-up with primary care physician in 1 week after discharge Please maintain a low carbohydrate diet and increase your daily activities as you were found to be prediabetic. Please talk to your primary care physician about possibly starting metformin due to your prediabetes. Speak with your primary care physician to be referred to outpatient sleep study as he may have some underlying obstructive sleep apnea. You have been started on home oxygen due to hypoxia. You have been prescribed albuterol as needed for wheezing or shortness of breath. Continue taking azithromycin and augmentin for 3 more days. Please come back to the ER if symptoms persist or worsen. Prescriptions/Referrals Prescriptions/Med Rec: New azithromycin 250 mg tablet 250 mg PO QDAY 3 Days Qty: 3 0RF albuterol sulfate 90 mcg/actuation HFA aerosol inhaler 1 puff inhalation QID PRN (Reason: shortness of breath or wheezing) Qty: 6.7 0RF amoxicillin-pot clavulanate 875-125 mg tablet 1 tab PO BID 3 Days Qty: 6 0RF Continued ergocalciferol (vitamin D2) 1,250 mcg (50,000 unit) capsule 1,250 mcg PO QDAY Patient Comments: TAKE 1 CAPSULE BY MOUTH ONE TIME PER WEEK ferrous sulfate 325 mg (65 mg iron) tablet,delayed release (DR/EC) 325 mg PO QDAY Patient Comments: TAKE 1 TABLET BY MOUTH EVERY DAY Referrals: Zechariah Landry MD [Primary Care Provider] - Patient/Caregiver Discharge Instructions Other Discharge Activity Instructions:: Please follow-up with primary care physician in 1 week after discharge Please maintain a low carbohydrate diet and increase your daily activities as you were found to be prediabetic. Please talk to your primary care physician about possibly starting metformin due to your prediabetes. Speak with your primary care physician to be referred to outpatient sleep study as he may have some underlying obstructive sleep apnea. You have been started on home oxygen due to hypoxia. You have been prescribed albuterol as needed for wheezing or shortness of breath. Continue taking azithromycin and amoxicillin for 3 more days. Please come back to the ER if symptoms persist or worsen. Education Materials: Prediabetes, Preventing Common Respiratory ... Print Language: Indonesian Stand Alone Forms: [facility] Award Info., Patient Portal Info Letter, Work/Release Restrictions Discharge Order Discharge Orders: Discharge (Routine); Ordered 01/02/25 Ordered By: Rick Daley Quality Discharge Quality Measures VTE prophylaxis Attestestation MD Attestation I reviewed labs, imaging, EKG, home medications and prior available records. Face to face evaluation was performed by me. I have personally examined the patient and discussed assessment and plan with the IM team. I reviewed the resident note and agree with the plan with exceptions as below. Acute hypoxic respiratory failure Community-acquired pneumonia Possible asthma Morbid obesity, BMI 58.6 Discussed with drug abuse social worker: Can discharge on home oxygen Continue amoxicillin/azithromycin p.o. Albuterol as needed. She will need pulmonary function test to confirm the diagnosis of asthma Outpatient weight management Time spent is 40 minutes. More than 50% of the time was spent on patient education and coordination of care.
--- NOTE | 2025-01-02 12:50 | PC.NURSE ---
Walking oxygen test performed. Pt O2 on room air at rest 91%. Pt O2 on room air with exercise 85%. Recovery test: pt on 2 L O2 with exercise 95%
--- NOTE | 2025-01-02 13:36 | PC.SS ---
Addendum entered by Darlene Del Toro 01/02/25 13:45: SS follow up note; [facility] will deliver 02 within 1-2 Hrs. Original Note: SS follow up note; SS submitted 02 inquiry through [employer].
[2025-01-02] MEDS: cefTRIAXone 1,000 MG in SODIUM CHLORIDE 0.9% (P) 50 ML 100 MG IV (14:19)
== END 2025-01-02 18:42 | disposition home or self-care (01) ==
LOC: SERX 16:55 → SERHOLD 17:52 → S3SX 01-02 09:23 → SERHOLD 01-02 10:25
PROVIDERS: Admitting Provider Student in an Organized Health Care Education/Training Program; Emergency Provider Emergency Medicine; PCP Family Medicine; Visit Provider Student in an Organized Health Care Education/Training Program
DX: J18.1 Lobar pneumonia, unspecified organism (principal); D64.9 Anemia, unspecified; E66.9 Obesity, unspecified; I10 Essential (primary) hypertension; J96.01 Acute respiratory failure with hypoxia; R73.03 Prediabetes; Z87.440 Personal history of urinary (tract) infections; Z91.119 Patient's noncompliance with dietary regimen due to unspecified reason
CPT/HCPCS: 36415; 71046; 80053; 80061; 83036; 83540; 83550; 85025; 87205; 87400; 87811; 94640; 94660; 96365; 96366; 96372; 99291; A9270; G0378; J0696; J1100; J1650; J1815; J7050